=== PATIENT | female | born 1930 | race Two or more races ===

== ENCOUNTER 2016-06-21 18:28 | Emergency (ER) | payer MEDICARE, MEDICAID ==
--- NOTE | 2016-06-21 19:03 | ED Physician Chart ---
Chief Complaint/HPI - Patient Information Date Seen:: 06/21/16 Time Seen:: 18:35 Chief Complaint:: poor by mouth intake History of Present Illness:: The patient was sent from a nearby [facility] by her private physician with report of poor oral intake. The patient is accompanied by an admission record with diagnosis information and medication history but there is no recent history or more detailed description of the exact complaint tonight. Allergies:: Allergies Allergy/AdvReac Type Severity Reaction Status Date / Time diazepam Allergy Verified 06/21/16 18:33 Vitals:: Vital Signs - 8 hr 06/21/16 18:30 Temp 97.0 F HR 80 RR 16 BP 110/63 O2 Sat % 97 Historian:: Medical Records, Other ([facility]) Review:: Nurse's Note Reviewed, Old Chart Reviewed Review of Systems - Review of Systems Other: unable to obtain secondary to dementia. Past Medical History - Past Medical History Obtainable: Yes (the pt is unable to give reliable pmhx, but i have accessed old records.) Past Medical History: DM, CHF, Thyroid disorder, Dementia, Cataract Family History: Other (unavailable) Social History: Care Facility, Other (unavailable) Surgical History: other (has scar on back and abd but unknown procedures) Psychiatricy History: Depression, Schizophrenia, Dementia Medication: Reviewed Medication Reviewed:: The patient has a documented Valium allergy but the exact nature of the allergic reaction is not stated. In addition the patient is DNR. Family Medical History - Family Member Mother History Unknown: Yes (unable) Ethnicity: Living Status: Unknown Hx Family Cancer: (UNKNOWN) Hx Family Coronary Artery Disease: (UNKNOWN) Hx Family Congestive Heart Failure: (UNKNOWN) Hx Family Hypertension: (UNKNOWN) Hx Family Stroke: (UNKNOWN) Hx Family Diabetes: (UNKNOWN) Hx Family Seizures: (UNKNOWN) Hx Family Dementia: (UNKNOWN) Hx Family AIDS: (UNKNOWN) Hx Family HIV: No Hx Family COPD: (UNKNOWN) Hx Family Hepatitis: (UNKNOWN) Hx Family Psychiatric Problems: (UNKNOWN) Hx Family Tuberculosis: (UNKNOWN) Physical Exam - Physical Examination General/Constitutional: Awake, Alert, No distress Head: Atraumatic Eyes: Lids, conjuctiva normal, PERRL, EOMI Skin: Nl inspection, No skin lesions, Well hydrated ENMT: Nasal exam nl, Lips, teeth, gums nl, Oropharynx nl, Tonsils nl Neck: Full ROM w/o pain, No mass, No stridor Respiratory: Clear to Auscultation, No Wheeze/Rhonchi/Rales Other Respiratory comments:: no resp distress or cough Cardio Vascular: RRR, No murmur, gallop, rubs, Carotid/Femoral/Distal pulses equal bilaterally GI: No tenderness/rebounding/guarding, No organomegaly, Normal BS's, Nondistended, No McBurney tenderness Extremities: Full ROM Other Extremities comments:: Trace pitting edema of the ankles bilaterally Misc: Normal back (old scar) Other:: On physical exam the patient is an 85 year old female lying quietly on the gurney in no apparent distress. She smiles when I enter the room and when I went by and she weighs back. The patient is very hard of hearing and I have to yell in order to get her to answer. He answers are occasionally accurate that sometimes seemed confused and irrelevant. He is no respiratory distress the vital signs are normal with an O2 sat of 97%. Her skin is intact with good turgor and there is no rashes, petechiae, ecchymosis, or unusual discoloration. HEENT exam is remarkable for bilateral intraocular lenses and poor dental hygiene. The mucous membranes are moist and normal in color. Patient is able to look from side to side without any apparent limitation in range of motion of the neck, there is no JVD, there is no stridor, and no cervical lymphadenopathy. The chest exam is remarkable for normal breath sounds bilaterally. Neurovascular exam is unremarkable with good peripheral pulses good skin vital signs and no unusual murmurs or arrhythmias. The abdomen is soft flat and nontender, there are no masses, bruits, hernias, and the patient allows deep palpation without evidencing any tenderness. The patient is able to move her upper extremities well but the lower extremities seem a lot weaker she has intact deep tendon reflexes in all extremities. Neurologically the patient seems grossly intact with no tremor or focal neurological deficits. Patient was interacting fairly normally and seemed quite happy until cath urine was attempted at which time she had a complete emotional breakdown with screaming, crying, and at that point refused to cooperate for blood work although she did permit a chest x-ray to be obtained. Labs/Radiology/EKG Results - Lab Results Results: Patient has a CBC with an H&H of 14.6 and 44.2, WBC 6.57% eosinophilia. Catheter urine is essentially negative. The glucose is 122 and the sodium is 135 all other labs are essentially normal. The anion gap is 11.5. We are currently awaiting that lactic acid level. Lactic acid level is 2.2 - Radiology Results Results: Single view chest x-ray interpreted by myself is remarkable for extensive pleural calcification over the left chest. It is essentially no interval change from prior x-ray performed November 2015. Assessment - Assessment General Assessment: Medical decision making: Advanced age patient with poor by mouth intake, dementia and a history of schizophrenic psychosis could have any number of possible underlying medical problems. After a thorough history and physical, review of old records, and imaging and laboratory analysis the list is much shorter but remains daunting. We will discuss with the PMD to decide patient disposition. Assessment/Comments:: The patient was reassessed after administration of Haldol and appeared generally calmer. The patient now has repetitive arm movements flaps her hands and arms above her head and I ask her questions. She will attempt to answer have difficulty understanding her speech she has difficulty understanding me secondary to pain loss. "I have wax in my ears". ED Septic Shock - . Is Septic Shock (SBP<90, OR Lactate>4 mmol\\L) present?: No - <6hrs of presentation: Vital Signs: Vital Signs - 8 hr 06/21/16 18:30 Temp 97.0 F HR 80 RR 16 BP 110/63 O2 Sat % 97 Reassessment (Disposition) - Reassessment Reassessment Condition:: Worsened - Diagnosis Diagnosis:: 1 decreased by mouth intake 2 slightly elevated lactic acid level 3 dementia with agitation occasionally
[2016-06-21] MEDS ORDERED: Haloperidol Lactate 5 mg/mL 1mL Vial ONE (19:14)
[2016-06-21] MEDS: Haloperidol Lactate 5 mg/mL 1mL Vial IM STA (19:21)
[2016-06-21 19:24] LABS: % BASOPHILS 0.2 % (0.0-2.0); % EOSINOPHILS 6.9 % (0.0-5.0); % LYMPHOCYTES 30.9 % (20.0-50.0); % MONOCYTES 10.9 % (2.0-10.0); % NEUTROPHILS 51.1 % (40.0-80.0); HEMOGLOBIN 14.6 gm/dL (11.7-16.1); MEAN CELL VOLUME 92.4 fl (81-100); MEAN CORPUSCULAR HEMOGLOBIN 30.4 pg (27.0-31.0); MEAN CORPUSCULAR HGB CONC 32.9 pg (28.0-36.0); MEAN PLATELET VOLUME 7.8 fl; NEUTROPHILE ABSOLUTE 3.4 Th/cmm (1.8-8.0); RED BLOOD COUNT 4.78 Mil/cmm (3.80-5.20); RED CELL DISTRIBUTION WIDTH 12.8 % (11.5-20.0); WHITE BLOOD COUNT 6.5 Th/cmm (4.8-10.8)
[2016-06-21 19:28] LABS: HEMATOCRIT 44.2 % (35.0-45.0); PLATELET COUNT 200 Th/cmm (150-400)
[2016-06-21 19:35] LABS: URINE BILIRUBIN SMALL (NEGATIVE); URINE BLOOD TRACE (NEGATIVE); URINE COLOR YELLOW; URINE GLUCOSE (UA) NEGATIVE (NEGATIVE); URINE KETONE NEGATIVE (NEGATIVE); URINE PROTEIN NEGATIVE (NEGATIVE)
[2016-06-21 19:36] LABS: URINE BACTERIA FEW /hpf (NONE SEEN); URINE EPITHELIAL CELLS FEW /lpf (FEW); URINE RBC 0-2 /hpf (0-5)
[2016-06-21 19:39] LABS: ANION GAP 11.5 (7.0-16.0); BUN - UREA NITROGEN 7 mg/dL (7-25); BUN/CREATININE RATIO 8.8; CHLORIDE 98 mEq/L (98-107); CREATININE - SERUM 0.8 mg/dL (0.6-1.2); GLUCOSE 122 mg/dL (70-105); POTASSIUM SERUM 3.5 mEq/L (3.5-5.1); SODIUM SERUM 135 mEq/L (136-145)
--- NOTE | 2016-06-22 11:16 | Diagnostic Imaging Report ---
Portable chest x-ray HISTORY: Shortness of breath Compared with prior exam of November 17, 2015, no change in extensive lateral calcification about the left hemithorax. Findings probably related to old inflammatory disease or trauma. Atherosclerotic calcification noted in the aorta with poor delineation the margins of the aortic arch. No acute pulmonary processes. Surgical clips seen in the right upper quadrant of the abdomen. IMPRESSION: 1. No acute abnormalities with no significant change since the prior exam of November 17, 2015. Persistent extensive pleural calcification about the left hemithorax. Findings may be related to old trauma or old inflammatory disease.
== END 2016-06-21 21:20 ==
LOC: ER 18:28
DX: R63.8 Other symptoms and signs concerning food and fluid intake (principal); R74.0 Nonspecific elevation of levels of transaminase and lactic acid dehydrogenase [LDH]; F03.90 Unspecified dementia, unspecified severity, without behavioral disturbance, psychotic disturbance, mood disturbance, and anxiety; E11.9 Type 2 diabetes mellitus without complications; I50.9 Heart failure, unspecified; E07.9 Disorder of thyroid, unspecified; F20.9 Schizophrenia, unspecified; Z88.8 Allergy status to other drugs, medicaments and biological substances
CPT/HCPCS: 36415-UA; 71010-TC; 80048-TC; 81001-TC; 83605; 85025-TC; J1630; Z7610